=== PATIENT | male | born 1930 | race Caucasian/White ===

== ENCOUNTER → 2016-07-04 | Outpatient (CLI) | payer MEDICARE ==
[~2016-07-04] MED LIST: REGADENOSON 0.4 MG/5 ML SYRINGE IV ONE
--- NOTE | 2016-07-04 12:54 | EST ---
DATE OF SERVICE: 07/04/2016 AGE: 85Y SEX: M HT: 5'9-1/2" WT: 172 lbs. Lexiscan Cardiolite Stress Test *Heart Rate Blood Pressure *Rest: 60 Rest: 124/68 * *Max. Achieved: 84 Maximum BP: 140/70 85% PMHR: 116 100% PMHR: 137 *METS: - INDICATIONS: Difficulty in breathing. MEDICATIONS: - Baseline EKG revealed normal sinus rhythm without significant ST-T changes. With Lexiscan administration, patient had transient shortness of breath and heart rate went up from 60 to 84 beats per minute and blood pressure was around 124/68 and changed to 140/70. EKG was unchanged and patient did not have any significant symptoms. By EKG criteria, this is an unremarkable Lexiscan stress test. The nuclear scan results, which are more pertinent, will be reported by the radiologist.
--- NOTE | 2016-07-04 13:19 | NM ---
EXAMINATION TYPE: NM stress lexiscan cardiolite DATE OF EXAM: 07/04/2016 12:51 PM COMPARISON: NONE HISTORY: TECHNIQUE: After the intravenous administration of 11.0 mCi Tc 99m Sestamibi - Cardiolite resting SP ECT images acquired 45 minutes post injection. The patient received 0.4mg Lexiscan, 26.2 mCi Tc 99m Sestamibi - Stress images obtained [address] injection FINDINGS: Review of stress and rest SPECT images demonstrates some decreased radiopharmaceutical uptake on stre ss images along the anteroseptal left ventricle towards the base of the heart on stress images as com pared to rest images. Gated analysis shows normal wall motion with an estimated left ventricular eje ction fraction of 67 %. 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 A [place] message has been communicated to Sara Moss MD via the [employer] system on 07/04/2016 1:16 PM, Message ID [id number].
== END | disposition home or self-care (01) ==
LOC: RADNMMAIN 08:54
PROVIDERS: ATTEND Family Medicine
DX: R06.00 Dyspnea, unspecified (principal); I10 Essential (primary) hypertension
CPT/HCPCS: 93017; 78452; A9500; J2785

== ENCOUNTER → 2016-07-12 | Day surgery (SDC) | payer MEDICARE ==
[2016-07-10 13:30] VITALS: BMI 24.7
[~2016-07-12] MED LIST changes: +ALPRAZolam 0.25 MG TAB PO PRN; +ALPRAZolam 0.5 MG TAB PO PRN; +ASPIRIN 325 MG TAB PO STA; +ATORVASTATIN 80 MG TAB PO STA; +IOHEXOL 350 MG/ML 100 ML BOTTLE INJ ONE; +LIDOCAINE 2% INJ 20 MG/ML SQ ONE; +NITROGLYCERIN SL TABS 0.4 MG TAB SUBLINGUAL PRN; -REGADENOSON 0.4 MG/5 ML SYRINGE IV ONE; +RX INFO: IV CONTRAST WAS GIVEN 1 EACH MISC MISCELLANE PRN; +SODIUM CHLORIDE 0.9% 1,000 ML IV SCH; +SODIUM CHLORIDE 0.9% 1,000 ML in EMPTY BAG 1 BAG IV ONE; +diphenhydrAMINE 50 MG/ML 1 ML VIAL IVP ONE; +diphenhydrAMINE 50 MG/ML 1 ML VIAL ONE; +fentaNYL (PF) 50 MCG/ML 2 ML AMP IV ONE; +fentaNYL (PF) 50 MCG/ML 2 ML AMP ONE
[2016-07-12 06:49] VITALS: TEMP 97.7
[2016-07-12 07:00] LABS: Basophils # (A) 0.1 k/uL (0-0.2); Basophils % (A) 1 %; CH 33.8; CHCM 34.6; Eosinophils # (A) 0.7 k/uL (0-0.7); Eosinophils % (A) 9 %; HCT 33.5 % (39.0-53.0); HDW 2.82; HGB 11.7 gm/dL (13.0-17.5); Luc # (Auto) 0.31; Luc % (Auto) 4; Lymphocytes # (A) 2.2 k/uL (1.0-4.8); Lymphocytes % (A) 26 %; MCH 34.4 pg (25.0-35.0); MCV 98.2 fL (80.0-100.0); Mean Platelet Volume 7.3; Monocytes # (A) 0.7 k/uL (0-1.0); Monocytes % (A) 8 %; Neutrophils # (A) 4.3 k/uL (1.3-7.7); Neutrophils % (A) 52 %; RBC 3.41 m/uL (4.30-5.90); WBC 8.2 k/uL (3.8-10.6); WBC (Perox) 7.35
[2016-07-12 07:09] LABS: Anion Gap 10 mmol/L; Blood Urea Nitrogen 16 mg/dL (9-20); Calcium 9.2 mg/dL (8.4-10.2); Carbon Dioxide 22 mmol/L (22-30); Chloride 112 mmol/L (98-107); Glucose 95 mg/dL (74-99); Non-African American GFR(MDRD) >60 (>60 ml/min/1.73 sqM); Potassium 4.2 mmol/L (3.5-5.1); Sodium 144 mmol/L (137-145)
--- NOTE | 2016-07-12 08:19 | P.PCN ---
Date of Procedure: 07/12/16 Preoperative Diagnosis: Positive stress test and exertional dyspnea Postoperative Diagnosis: Mild to moderate coronary artery disease without any critical lesions Procedure(s) Performed: Left heart catheterization with left ventriculography Implants: Indications for Procedure: Operative Findings: Description of Procedure: HISTORY: This is a 84-year-old male with history of hypercholesterolemia who has been experiencing exertional shortness of breath. Patient was evaluated by nuclear stress test which was reported as showing anteroseptal ischemia. Patient was referred to our office for further evaluation. Patient is advised to have a cardiac catheterization for definitive diagnosis. Patient was also started on by mouth nitrates. Patient is not on beta herrera because of bradycardia and relative hypotension. CONSENT:I have discussed the risks, benefits and alternative therapies for the above-mentioned procedure and for both sedation/analgesia as well as necessary blood product administration, if indicated, as they pertain to this patient. The patient has indicated understanding and acceptance of the risks and procedures discussed. CONSCIOUS SEDATION: The patient was given fentanyl 20 mg for sedation. Duration is 21 minutes. PROCEDURE: Patient was brought to the lab in a fasting state. . The right groin is infiltrated with lidocaine and right femoral artery was entered using Seldinger technique. A 6-Mongolian catheter was left in place and selective coronary arteriography and left ventriculography was performed. Patient tolerated the procedure well. Femoral angiogram was performed and Angio-Seal was applied for hemostasis. No immediate complications were noted and patient was transferred to [facility] in a stable condition HEMODYNAMICS: The aortic pressure is 110/70. Left ankle end-diastolic pressure is 15-20. There was no gradient across the aortic valve. SELECTIVE CORONARY ARTERIOGRAPHY: LEFT MAIN: This is a good caliber vessel free of any significant occlusive disease. THE LEFT ANTERIOR DESCENDING CORONARY ARTERY: This is a good caliber vessel giving rise to a couple of diagonal and septal branches. It has about 60% lesion in the mid to distal portion. Beyond that the vessel appears to be free of significant occlusive disease. THE LEFT CIRCUMFLEX AND IS CORONARY ARTERY: This is a good caliber vessel. One of the OM branch has about 60% stenosis. THE RIGHT CORONARY ARTERY: This is a dominant vessel giving rise to good-sized PDA and PLV. Free of any significant occlusive disease. LEFT VENTRICULOGRAPHY: This was performed 30 right and oblique projection. This revealed normal-sized cardiac silhouette with good systolic function. There is no mitral regurgitation. FINAL IMPRESSION: #1. Moderate coronary artery disease with about 60% lesion in the mid to distal LAD and also about 60% lesion in the OM branch of circumflex. PLAN: Maximum medical therapy with risk factor modification. If patient symptoms don't improve, may consider further intervention. PROGNOSIS: Fair.
[2016-07-12 11:37] VITALS: BP 114/58; PULSE 72; RESP 16
== END | disposition home or self-care (01) ==
LOC: CATHCVL 06:19
PROVIDERS: ATTEND Internal Medicine Cardiovascular Disease
DX: I25.10 Atherosclerotic heart disease of native coronary artery without angina pectoris (principal); R94.39 Abnormal result of other cardiovascular function study; E78.2 Mixed hyperlipidemia; E78.00 Pure hypercholesterolemia, unspecified; Z79.899 Other long term (current) drug therapy; Z87.891 Personal history of nicotine dependence
CPT/HCPCS: 93458; 80048; 85025; 99152; C1760; C1894; C1769; J2001; J1200; Q9967; J3010